=== PATIENT | female | born 1975 | race Caucasian/White ===

== ENCOUNTER 2020-09-05 08:15 | Outpatient (CLI) | payer OTHER, SELFPAY ==
[2020-09-05 08:41] LABS: Basophils Percent Auto 0.4 % (0.2-1.2); Eosinophils Absolute Auto 0.1 K/mm3 (0-0.3); Eosinophils Percent Auto 1.9 % (0-4.4); Hematocrit 37.7 % (37.0-47.0); Hemoglobin 12.9 g/dL (12.0-15.0); Lymphocytes Absolute Auto 1.69 K/mm3 (0.9-3.2); Lymphocytes Percent Auto 35.6 % (18.3-44.2); Mean Corpuscular HGB Conc 34.2 g/dl (32-36); Mean Corpuscular Hemoglobin 30.1 pg (26-34); Mean Corpuscular Volume 88.1 fl (80-100); Mean Platelet Volume 9.4 fl (7.4-10.4); Monocytes Absolute Auto 0.3 K/mm3 (0.1-0.6); Monocytes Percent Auto 6.7 % (2.6-8.5); Neutrophils Absolute Auto 2.6 K/mm3 (1.3-6.7); Neutrophils Percent Auto 55.4 % (45.5-73.1); Platelet Count Result 240 k/mm3 (150-375); Red Blood Count 4.28 M/mm3 (4.2-5.4); Red Cell Distribution Width 12.7 % (11.5-14.5); White Blood Count 4.8 K/mm3 (4.5-10.0)
[2020-09-05 08:46] LABS: Add Urine Microscopic? YES; Appearance Urine Cloudy (Clear); Bacteria Urine Trace /hpf; Bilirubin Urine Negative (Negative); Blood Urine Negative (Negative); Color Urine Straw (Yellow); Glucose Urine UA Negative (Negative); Ketones Urine Negative (Negative); Leukocyte Esterase Ur Trace LEU/UL (NEGATIVE); Mucus Urine Rare /lpf; Nitrate Urine Negative (Negative); Protein Urine Negative (Negative); RBC Urine 0-2 /hpf (0-2); Specific Grav Ur 1.015 (1.001-1.035); Squamous Epithelial Cell Urine Many /hpf (Few); Urobilinogen Urine Negative mg/dL (<2.0); WBC Urine 0-3 /hpf (0-3)
[2020-09-05 08:53] LABS: Alanine Aminotransferase 26 U/L (4-35); Albumin Level 4.4 g/dL (3.5-5.1); Alkaline Phosphatase 74 U/L (38-126); Anion Gap 5 mmol/L (8-16); Aspartate Amino Transferase 25 U/L (14-36); Bilirubin,Total 0.3 mg/dL (0.2-1.3); Blood Urea Nitrogen 13 mg/dL (7-17); Calcium 9.4 mg/dL (8.4-10.2); Carbon Dioxide 25 mmol/L (22-30); Chloride 107 mmol/L (98-107); Cholesterol 168 mg/dL (0-200); Estimated Glomerular Filt Rate > 60; Glucose 105 mg/dL (65-105); HDL Direct 58 mg/dL; Sodium 137 mmol/L (137-145); Triglycerides 161 mg/dL (<150)
[2020-09-05 09:04] LABS: LDL Cholesterol Direct 76 mg/dL
[2020-09-05 10:01] LABS: Folic Acid 9.2 ng/mL (2.76->20); Vitamin B12 > 1000.0 pg/mL (239-931)
[2020-09-09 10:50] LABS: Vitamin D 1,25 (OH)2 Total 33 pg/mL (18-72); Vitamin D2 1,25 (OH)2 <8 pg/mL; Vitamin D3 1,25 (OH)2 33 pg/mL
== END 2020-09-05 08:16 | disposition home or self-care (01) ==
PROVIDERS: PCP Family Medicine; Visit Provider Family Medicine
DX: E55.9 Vitamin D deficiency, unspecified (principal); D51.9 Vitamin B12 deficiency anemia, unspecified; I10 Essential (primary) hypertension; E78.2 Mixed hyperlipidemia
CPT/HCPCS: 36415; 80053; 80061; 81001; 82607; 82652; 82746; 84443; 85025

== ENCOUNTER 2020-10-19 11:43 | Outpatient (CLI) | payer OTHER, SELFPAY ==
--- NOTE | ~2020-10-19 | US_ITS ---
EXAMINATION: US venous doppler [facility] DATE: 10/19/2020 12:37 INDICATION: Left lower limb pain. TECHNIQUE: Grayscale ultrasound images without and with compression and Doppler ultrasound images of the bilateral lower extremity veins were obtained. COMPARISON: None. FINDINGS: The visualized portions of right common femoral vein, profunda (deep) femoral vein, femoral vein, pop liteal vein, posterior tibial veins, peroneal veins, gastrocnemius vein and greater saphenous vein ou tflow are patent. The visualized portions of left common femoral vein, profunda femoral vein, femoral vein, popliteal v ein, posterior tibial veins, peroneal veins, gastrocnemius vein and greater saphenous vein outflow ar e patent. IMPRESSION: 1. No deep venous thrombosis in either lower limb. Reviewed, dictated and finalized at location B.
== END 2020-10-19 11:44 | disposition home or self-care (01) ==
PROVIDERS: PCP Family Medicine; Visit Provider Physician Assistant Medical
DX: M79.662 Pain in left lower leg (principal)
CPT/HCPCS: 93970

== ENCOUNTER 2020-11-05 07:18 | Outpatient (CLI) | payer OTHER, SELFPAY ==
[2020-11-05 08:13] LABS: Anion Gap 6 mmol/L (8-16); Blood Urea Nitrogen 14 mg/dL (7-17); Calcium 9.2 mg/dL (8.4-10.2); Carbon Dioxide 29 mmol/L (22-30); Chloride 106 mmol/L (98-107); Estimated Glomerular Filt Rate > 60; Glucose 110 mg/dL (65-105); Potassium 4.2 mmol/L (3.4-5.0); Sodium 141 mmol/L (137-145)
[2020-11-05 08:48] LABS: Erythrocyte Sedimentation Rate 20 mm/hr (0-20)
[2020-11-09 11:17] LABS: ANA Cascade Screen Negative (Negative)
== END 2020-11-05 07:19 | disposition home or self-care (01) ==
LOC: ANHLAB 07:22
PROVIDERS: PCP Family Medicine; Visit Provider Family Medicine
DX: R73.01 Impaired fasting glucose (principal); M54.42 Lumbago with sciatica, left side; G89.29 Other chronic pain
CPT/HCPCS: 36415; 80048; 85652; 86038

== ENCOUNTER 2021-01-15 16:00 | Outpatient (CLI) | payer OTHER, SELFPAY ==
--- NOTE | 2021-02-01 12:20 | WPDHOMESLEEP ---
Sleep Study - Home Unattended Date of Study: 01/15/21 Ordering Provider: Ponce Zamarripa MD Interpreting Provider: Johnna Grijalva MD Home Sleep Study Type: Watch PAT Height: 1.55 m Weight: 122.016 kg Body Mass Index: 50.8 Neck Circumference (inches): 16 [place]: 11 Reason for Sleep Study Hypersomnolence Sleep History Ling Marques is a 45 year old female who is constantly tired, no matter how much she sleeps. She had a home study and an office sleep study from [facility] and was found to have low oxygen levels. She rarely awakens from sleep feeling short of breath. She occasionally awakens at night with heartburn, belching or coughing. She constantly snores and frequently this is loud enough that others complain about it. She frequently has trouble sleeping with a cold. She rarely wakes up gasping for breath at night. She does not have breathing problems at night observed by others. She constantly sweats excessively at night. She rarely notices her heart pounding or beating irregularly night. She occasionally falls asleep during the day, occasionally falls asleep involuntarily. She never falls asleep while driving. She does not have loss of muscle tone with strong emotion. She occasionally has daytime difficulties due to excessive sleepiness. She does not feel paralyzed on waking or falling asleep. She occasionally has vivid dreamlike scenes upon awakening or falling asleep. She never feels afraid to go to sleep. She rarely has nightmares. She occasionally remembers her dreams. She frequently has racing thoughts. She occasionally feels sad depressed and anxious. She constantly has muscular tension. She rarely notices parts of her body jerking. She rarely kicks at night. She does not have crawling or aching feelings in her legs and does not have any kind of leg pain at night. She occasionally has morning jaw pain. She frequently grinds her teeth during sleep. She constantly is bothered by pain during the day and frequently is awakened by pain at night. She frequently wakes up feeling stiff in the morning, rarely with sore or achy muscles, and occasionally with pain in the neck and spine. She has headaches, fatigue, tension, and memory problems. She occasionally awakens with a morning headache. She frequently awakens feeling refreshed. Normal bedtime is between 9:00 p.m. and 10:00 p.m., sometimes later. It takes only seconds for her to fall asleep. She typically wakes twice at night to get a drink and use the bathroom. She is able to return to sleep quickly. She wakes the morning at 5:45 a.m.. On the weekends, she goes to bed at midnight or later, and wakes at 8:00 a.m.. She estimates getting 6-7 hours of sleep at night. She does not generally take naps. A short nap is not refreshing. She feels better in the morning compared other times of day. Habits: Never smoked tobacco. Caffeine 2 cans of soda or tea daily. No alcohol. [facility] Past Medical History Medical History (Updated 02/01/21 @ 12:43 by Johnna Grijalva MD) Abnormal fasting glucose Chronic anxiety Chronic pain of left knee COVID-19 (06/15/20) Gastro-esophageal reflux disease without esophagitis Major depression, chronic Nocturnal hypoxemia Vitamin B12 deficiency anemia Vitamin D deficiency, unspecified Family History Family History Mother Patient's mother is , Onset Age: 60 Father Patient's father is in good health Grandparent Family history of lung cancer Family history of coronary artery disease Family history of throat cancer, Onset Age: 65 Social History Social History Smoking status: Never smoker Alcohol intake: never Medications Home Medications Medication Instructions Recorded Confirmed Type Lactobac mg PO 06/19/19 11/11/20 History 41-Bifido.bifidum,lactis-FOS 111
[2021-02-01 12:54] VITALS: BMI 50.8
== END 2021-01-15 16:08 | disposition home or self-care (01) ==
LOC: ANHCSM 01-18 10:02
PROVIDERS: PCP Family Medicine; Visit Provider Family Medicine
DX: G47.33 Obstructive sleep apnea (adult) (pediatric) (principal); G47.10 Hypersomnia, unspecified
CPT/HCPCS: 95800

== ENCOUNTER 2021-02-24 08:47 | Outpatient (CLI) | payer OTHER, SELFPAY ==
--- NOTE | 2021-03-16 06:03 | WPDSLEEPSTUD ---
Sleep Study Date of Study: 02/24/21 Ordering Provider: Ponce Zamarripa MD Interpreting Physician: Johnna Grijalva MD Sleep Study Type: CPAP Titration Height: 1.57 m Weight: 127.006 kg Body Mass Index: 51.2 Neck Circumference (inches): 16 [place]: 14 Reason for Sleep Study Home sleep test 01/15/21 using WatcPat with mild obstructive sleep apnea, apnea-hypopnea index 10, patient present for CPAP Titration Sleep History Ling Marques is a 45 year old female who is constantly tired, no matter how much she sleeps. She had a home study and an office sleep study from [facility] and was found to have low oxygen levels. She rarely awakens from sleep feeling short of breath. She occasionally awakens at night with heartburn, belching or coughing. She constantly snores and frequently this is loud enough that others complain about it. She frequently has trouble sleeping with a cold. She rarely wakes up gasping for breath at night. She does not have breathing problems at night observed by others. She constantly sweats excessively at night. She rarely notices her heart pounding or beating irregularly night. She occasionally falls asleep during the day, occasionally falls asleep involuntarily. She never falls asleep while driving. She does not have loss of muscle tone with strong emotion. She occasionally has daytime difficulties due to excessive sleepiness. She does not feel paralyzed on waking or falling asleep. She occasionally has vivid dreamlike scenes upon awakening or falling asleep. She never feels afraid to go to sleep. She rarely has nightmares. She occasionally remembers her dreams. She frequently has racing thoughts. She occasionally feels sad depressed and anxious. She constantly has muscular tension. She rarely notices parts of her body jerking. She rarely kicks at night. She does not have crawling or aching feelings in her legs and does not have any kind of leg pain at night. She occasionally has morning jaw pain. She frequently grinds her teeth during sleep. She constantly is bothered by pain during the day and frequently is awakened by pain at night. She frequently wakes up feeling stiff in the morning, rarely with sore or achy muscles, and occasionally with pain in the neck and spine. She has headaches, fatigue, tension, and memory problems. She occasionally awakens with a morning headache. She frequently awakens feeling refreshed. Normal bedtime is between 9:00 p.m. and 10:00 p.m., sometimes later. It takes only seconds for her to fall asleep. She typically wakes twice at night to get a drink and use the bathroom. She is able to return to sleep quickly. She wakes the morning at 5:45 a.m.. On the weekends, she goes to bed at midnight or later, and wakes at 8:00 a.m.. She estimates getting 6-7 hours of sleep at night. She does not generally take naps. A short nap is not refreshing. She feels better in the morning compared other times of day. Habits: Never smoked tobacco. Caffeine 2 cans of soda or tea daily. No alcohol. [facility] Past Medical History Medical History Abnormal fasting glucose Chronic anxiety Chronic pain of left knee COVID-19 (06/15/20) Gastro-esophageal reflux disease without esophagitis Major depression, chronic Nocturnal hypoxemia Obstructive sleep apnea (01/15/21) home sleep study on 01/15/2021 with sleep apnea with AHI of 10 overall with oxygen desaturation severe down to 76%. Need CPAP titration Vitamin B12 deficiency anemia Vitamin D deficiency, unspecified Family History Family History Mother Patient's mother is , Onset Age: 60 Father Patient's father is in good health Grandparent Family history of lung cancer Family history of coronary artery disease Family history of throat cancer, Onset Age: 65 Social History Social History (Revie
[2021-03-16 06:05] VITALS: BMI 51.2
== END 2021-02-25 07:46 | disposition home or self-care (01) ==
LOC: ANHCSM 09:05
PROVIDERS: PCP Family Medicine; Visit Provider Family Medicine
DX: G47.33 Obstructive sleep apnea (adult) (pediatric) (principal); R09.02 Hypoxemia
CPT/HCPCS: 95811

== ENCOUNTER 2023-02-03 07:50 | Outpatient (CLI) | payer OTHER, SELFPAY ==
[2023-02-03 09:28] LABS: Basophils Percent Auto 0.5 % (0.2-1.2); Eosinophils Absolute Auto 0.1 K/mm3 (0-0.3); Eosinophils Percent Auto 2.8 % (0-4.4); Hematocrit 36.8 % (37.0-47.0); Immature Granulocyte Absolute 0.02 K/mm3 (0.00-0.031); Immature Granulocyte Percent A 0.5 % (0-0.5); Lymphocytes Absolute Auto 1.43 K/mm3 (0.9-3.2); Lymphocytes Percent Auto 32.9 % (18.3-44.2); Mean Corpuscular HGB Conc 32.6 g/dl (32-36); Mean Corpuscular Hemoglobin 28.6 pg (26-34); Mean Corpuscular Volume 87.8 fl (80-100); Mean Platelet Volume 9.2 fl (7.4-10.4); Monocytes Absolute Auto 0.3 K/mm3 (0.1-0.6); Monocytes Percent Auto 7.8 % (2.6-8.5); Neutrophils Absolute Auto 2.4 K/mm3 (1.3-6.7); Neutrophils Percent Auto 55.5 % (45.5-73.1); Platelet Count Result 220 k/mm3 (150-375); Red Blood Count 4.19 M/mm3 (4.2-5.4); Red Cell Distribution Width 13.2 % (11.5-14.5); White Blood Count 4.4 K/mm3 (4.5-10.0)
[2023-02-03 09:42] LABS: Chloride 107 mmol/L (98-107); Potassium 4.1 mmol/L (3.4-5.0); Sodium 138 mmol/L (137-145)
[2023-02-03 09:43] LABS: Alanine Aminotransferase 34 U/L (6-35); Albumin Level 4.1 g/dL (3.5-5.1); Alkaline Phosphatase 83 U/L (38-126); Anion Gap 6 mmol/L (8-16); Aspartate Amino Transferase 27 U/L (14-36); Bilirubin,Total 0.4 mg/dL (0.2-1.3); Blood Urea Nitrogen 11 mg/dL (7-17); Calcium 8.8 mg/dL (8.4-10.2); Carbon Dioxide 25 mmol/L (22-30); Cholesterol 180 mg/dL (0-200); Estimated Glomerular Filt Rate > 60; Glucose 90 mg/dL (65-110); HDL Direct 59 mg/dL; Triglycerides 155 mg/dL (<150)
[2023-02-03 09:44] LABS: Hemoglobin A1C 5.4 % (<5.7)
[2023-02-03 09:52] LABS: LDL Cholesterol Direct 83 mg/dL
[2023-02-03 09:57] LABS: Appearance Urine Cloudy (Clear); Bacteria Urine 2+ /hpf; Bilirubin Urine Negative (Negative); Blood Urine Negative (Negative); Color Urine Yellow (Yellow); Glucose Urine UA Negative (Negative); Ketones Urine Negative (Negative); Leukocyte Esterase Ur 2+ LEU/UL (NEGATIVE); Nitrate Urine Negative (Negative); Non Pathogenic Casts 0-2; Protein Urine Negative (Negative); Specific Grav Ur 1.017 (1.001-1.035); Squamous Epithelial Cell Urine Moderate /hpf (Few); Urobilinogen Urine 0.2 mg/dL (<2.0); WBC Urine 21-50 /hpf (0-3); pH Urine 5.5 (5.0-9.0)
[2023-02-03 10:24] LABS: Free T4 Free Thyroxine 0.85 ng/mL (0.78-2.19)
[2023-02-03 10:48] LABS: Folic Acid 11.1 ng/mL (2.76->20)
[2023-02-03 10:58] LABS: Add Urine Microscopic? YES
[2023-02-08 11:29] LABS: Vitamin D 1,25 (OH)2 Total 29 pg/mL (18-72); Vitamin D2 1,25 (OH)2 <8 pg/mL; Vitamin D3 1,25 (OH)2 29 pg/mL
== END 2023-02-03 07:51 | disposition home or self-care (01) ==
PROVIDERS: PCP Family Medicine; Visit Provider Family Medicine
DX: R73.01 Impaired fasting glucose (principal); E55.9 Vitamin D deficiency, unspecified; D51.9 Vitamin B12 deficiency anemia, unspecified; F41.9 Anxiety disorder, unspecified; E78.2 Mixed hyperlipidemia; I10 Essential (primary) hypertension
CPT/HCPCS: 36415; 80053; 80061; 81001; 82607; 82652; 82746; 83036; 84439; 84443; 85025

== ENCOUNTER 2023-05-15 07:56 | Outpatient (CLI) | payer OTHER, SELFPAY ==
--- NOTE | ~2023-05-15 | XR_ITS ---
EXAMINATION: XR shoulder RT min 2V DATE: 05/15/2023 08:32 INDICATION: Right shoulder pain. TECHNIQUE: AP internally and externally rotated, AP oblique externally rotated and transscapular Y vi ews of the right shoulder were obtained. COMPARISON: None FINDINGS: Normal alignment. No fracture. Glenohumeral joint is normal. Mild acromioclavicular osteoarthritis. Small loose body versus heterotopic ossicle along the cephalad margin of the joint space. Soft tissue s are unremarkable. Visualized portion of the right lung is clear. IMPRESSION: Mild right acromioclavicular osteoarthritis Reviewed, dictated and finalized at location A.
--- NOTE | ~2023-05-15 | XR_ITS ---
EXAMINATION: XR AC joint BI DATE: 05/15/2023 08:32 INDICATION: Right shoulder pain. TECHNIQUE: Frontal views of the bilateral acromioclavicular joints without and with weights were obta ined. COMPARISON: None. FINDINGS: Bone alignment is normal. No fracture. There is mild osteoarthritis of the acromioclavicula r joints. IMPRESSION: 1. Mild osteoarthritis of the acromioclavicular joints. Reviewed, dictated and finalized at location A.
== END 2023-05-15 07:57 | disposition home or self-care (01) ==
PROVIDERS: PCP Family Medicine; Visit Provider Family Medicine
DX: M25.511 Pain in right shoulder (principal); M19.011 Primary osteoarthritis, right shoulder
CPT/HCPCS: 73030; 73050

== ENCOUNTER 2023-12-04 13:51 | Outpatient (CLI) | payer OTHER, SELFPAY ==
[2023-12-04 15:24] LABS: Basophils Percent Auto 0.5 % (0.2-1.2); Eosinophils Absolute Auto 0.6 K/mm3 (0-0.3); Eosinophils Percent Auto 8.8 % (0-4.4); Hematocrit 39.7 % (37.0-47.0); Hemoglobin 12.8 g/dL (12.0-15.0); Immature Granulocyte Absolute 0.04 K/mm3 (0.00-0.031); Immature Granulocyte Percent A 0.5 % (0-0.5); Lymphocytes Absolute Auto 2.48 K/mm3 (0.9-3.2); Lymphocytes Percent Auto 33.9 % (18.3-44.2); Mean Corpuscular HGB Conc 32.2 g/dl (32-36); Mean Corpuscular Hemoglobin 29.2 pg (26-34); Mean Corpuscular Volume 90.6 fl (80-100); Mean Platelet Volume 9.6 fl (7.4-10.4); Monocytes Absolute Auto 0.5 K/mm3 (0.1-0.6); Monocytes Percent Auto 6.8 % (2.6-8.5); Neutrophils Absolute Auto 3.6 K/mm3 (1.3-6.7); Neutrophils Percent Auto 49.5 % (45.5-73.1); Platelet Count Result 281 k/mm3 (150-375); Red Blood Count 4.38 M/mm3 (4.2-5.4); Red Cell Distribution Width 13.2 % (11.5-14.5); White Blood Count 7.3 K/mm3 (4.5-10.0)
[2023-12-04 15:48] LABS: Anion Gap 10 mmol/L (4-12); Blood Urea Nitrogen 12 mg/dL (7-17); Carbon Dioxide 25 mmol/L (22-30); Chloride 105 mmol/L (98-107); Estimated Glomerular Filt Rate > 60; Glucose 104 mg/dL (65-110); Sodium 140 mmol/L (137-145)
[2023-12-04 15:59] LABS: Iron 84 ug/dL (37-170)
[2023-12-04 16:08] LABS: Percent Iron Saturation 26 % (20-50)
== END 2023-12-04 13:52 | disposition home or self-care (01) ==
LOC: ANHLAB 13:53
PROVIDERS: PCP Family Medicine; Visit Provider Family Medicine
DX: K92.1 Melena (principal)
CPT/HCPCS: 36415; 80048; 82728; 83540; 83550; 85025

== ENCOUNTER 2024-01-26 07:46 | Outpatient (CLI) | payer OTHER, SELFPAY ==
[2024-01-26 08:36] LABS: Alanine Aminotransferase 34 U/L (6-35); Albumin Level 4.6 g/dL (3.5-5.1); Alkaline Phosphatase 86 U/L (38-126); Anion Gap 10 mmol/L (4-12); Aspartate Amino Transferase 28 U/L (14-36); Bilirubin,Total 0.4 mg/dL (0.2-1.3); Blood Urea Nitrogen 16 mg/dL (7-17); Calcium 9.2 mg/dL (8.4-10.2); Carbon Dioxide 23 mmol/L (22-30); Chloride 109 mmol/L (98-107); Cholesterol 161 mg/dL (0-200); Estimated Glomerular Filt Rate > 60; Glucose 112 mg/dL (65-110); HDL Direct 63 mg/dL; Potassium 4.2 mmol/L (3.4-5.0); Sodium 142 mmol/L (137-145); Triglycerides 115 mg/dL (<150)
[2024-01-26 08:47] LABS: Hemoglobin A1C 5.5 % (<5.7); LDL Cholesterol Direct 78 mg/dL
[2024-01-26 08:51] LABS: Basophils Percent Auto 0.4 % (0.2-1.2); Eosinophils Absolute Auto 0.2 K/mm3 (0-0.3); Eosinophils Percent Auto 3.3 % (0-4.4); Hematocrit 38.9 % (37.0-47.0); Hemoglobin 12.6 g/dL (12.0-15.0); Immature Granulocyte Absolute 0.03 K/mm3 (0.00-0.031); Immature Granulocyte Percent A 0.6 % (0-0.5); Lymphocytes Absolute Auto 1.73 K/mm3 (0.9-3.2); Lymphocytes Percent Auto 33.1 % (18.3-44.2); Mean Corpuscular HGB Conc 32.4 g/dl (32-36); Mean Corpuscular Hemoglobin 29.2 pg (26-34); Mean Platelet Volume 9.2 fl (7.4-10.4); Monocytes Absolute Auto 0.4 K/mm3 (0.1-0.6); Monocytes Percent Auto 6.9 % (2.6-8.5); Neutrophils Absolute Auto 2.9 K/mm3 (1.3-6.7); Neutrophils Percent Auto 55.7 % (45.5-73.1); Platelet Count Result 230 k/mm3 (150-375); Red Blood Count 4.32 M/mm3 (4.2-5.4); Red Cell Distribution Width 13.1 % (11.5-14.5); White Blood Count 5.2 K/mm3 (4.5-10.0)
[2024-01-26 08:56] LABS: Free T4 Free Thyroxine 0.89 ng/mL (0.78-2.19)
[2024-01-26 09:23] LABS: Appearance Urine Clear (Clear); Bilirubin Urine Negative (Negative); Blood Urine Negative (Negative); Color Urine Yellow (Yellow); Glucose Urine UA Negative (Negative); Ketones Urine Negative (Negative); Leukocyte Esterase Ur Negative LEU/UL (Negative); Nitrate Urine Negative (Negative); Protein Urine Negative (Negative); Specific Grav Ur 1.023 (1.001-1.035); Urobilinogen Urine 0.2 mg/dL (<2.0); pH Urine 5.5 (5.0-9.0)
[2024-01-26 09:26] LABS: Add Urine Microscopic? NO
[2024-01-26 10:19] LABS: MALB Creatinine Ratio < 4.9 mg/g (0-30); Microalbumin Urine Random < 6.0 mg/L (0-16.7)
[2024-01-29 12:42] LABS: Vitamin D 1,25 (OH)2 Total 27 pg/mL (18-72); Vitamin D2 1,25 (OH)2 <8 pg/mL; Vitamin D3 1,25 (OH)2 27 pg/mL
== END 2024-01-26 07:47 | disposition home or self-care (01) ==
LOC: ANHLAB 07:51
PROVIDERS: PCP Family Medicine; Visit Provider Family Medicine
DX: E55.9 Vitamin D deficiency, unspecified (principal); R73.01 Impaired fasting glucose; E78.2 Mixed hyperlipidemia; F41.9 Anxiety disorder, unspecified; D51.9 Vitamin B12 deficiency anemia, unspecified
CPT/HCPCS: 36415; 80053; 80061; 81003; 82043; 82607; 82652; 83036; 84439; 84443; 85025

== ENCOUNTER 2024-06-24 15:07 | Outpatient (CLI) | payer OTHER, SELFPAY ==
--- NOTE | ~2024-06-24 | MM_ITS ---
EXAMINATION: MM screening clemente BI w margi HISTORY: Screening mammogram TECHNIQUE: Craniocaudal and mediolateral oblique 3-D tomosynthesis images were obtained and synthetic 2-D images were generated. CAD analysis was submitted and interpreted. COMPARISON: No prior mammogram is available for comparison at this institution. BREAST PARENCHYMAL COMPOSITION:Not Dense. The breasts are almost entirely fatty FINDINGS: No suspicious mass, calcification, or architectural distortion are identified in either marian ast to suggest malignancy. There has been no suspicious interval change. IMPRESSION: No mammographic evidence of malignancy. Recommend routine screening mammography in one year. BI-RADS Category 1: Negative Reviewed, dictated and finalized at location . 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
== END 2024-06-24 15:08 | disposition home or self-care (01) ==
LOC: ANHIMG 15:11
PROVIDERS: PCP Family Medicine; Visit Provider Obstetrics & Gynecology
DX: Z12.31 Encounter for screening mammogram for malignant neoplasm of breast (principal)
CPT/HCPCS: 77063; 77067